=== PATIENT | male | born 1940 | race Caucasian/White ===

== ENCOUNTER 2017-03-15 21:50 | Emergency (ER) | payer OTHER ==
--- NOTE | 2017-03-15 22:18 | EDPHY ---
H & P Smoking Status: Never smoked Time Seen by Provider: 03/15/17 22:09 HPI/ROS: CHIEF COMPLAINT: Right hip pain HISTORY OF PRESENT ILLNESS: This is a 76-year-old male brought into the emergency department by EMS, patient states he bent over to look at the fireplace 1 hour prior to arrival when he felt his right hip pop. 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 Left hip replacement 4 years ago denies any problems. Denies any other injuries REVIEW OF SYSTEMS: Constitutional: No fever, no chills. Eyes: No discharge. No blurred vision ENT: No sore throat. Cardiovascular: No chest pain, no palpitations. Respiratory: No cough, no shortness of breath. Gastrointestinal: No abdominal pain, no vomiting. Genitourinary: No difficulty Musculoskeletal: No back pain. Right hip pain Skin: No rashes. Neurological: No headache. (Belinda Anderson) Physical Exam: General Appearance: Alert, no distress. Eyes: Pupils equal and round no pallor or injection. ENT, Mouth: Mucous membranes moist. Respiratory: There are no retractions, lungs are clear to auscultation. Cardiovascular: Regular rate and rhythm. Gastrointestinal: Abdomen is soft and nontender, no masses, bowel sounds normal. Neurological: No focal deficits Skin: Warm and dry, no rashes. Musculoskeletal: Neck is supple nontender. Extremities: Right hip tenderness, decreased range of motion, no rotation noted positive CMS intact Psychiatric: Patient is oriented X 3, acting appropriate (Belinda Anderson) Constitutional: Initial Vital Signs Temperature (C) 36.5 C 03/15/17 21:58 Heart Rate 82 03/15/17 21:58 Respiratory Rate 16 03/15/17 21:58 Blood Pressure 135/73 H 03/15/17 21:58 O2 Sat (%) 94 03/15/17 21:58 O2 Delivery Mode [Post Nasal Cannula Procedure 3rd] O2 Delivery Mode [Post Non-Rebreather Mask Procedure 2nd] O2 Delivery Mode [Post Non-Rebreather Mask Procedure 1st] O2 Delivery Mode [Procedural Non-Rebreather Mask 1st] O2 Delivery Mode [.Immediate Non-Rebreather Mask Pre-Procedure] O2 Delivery Mode Room Air O2 (L/minute) [Post Procedure 2 3rd] O2 (L/minute) [Post Procedure 15 2nd] O2 (L/minute) [Post Procedure 15 1st] O2 (L/minute) [Procedural 1st] 15 O2 (L/minute) [.Immediate Pre- 15 Procedure] O2 (L/minute) 15 Allergies/Adverse Reactions: Penicillins Allergy (Verified 03/15/17 22:01) Medical Decision Making - Diagnostics Imaging Results: Imaging Impressions Hip X-Ray 03/15/17 22:16 Impression: Right hip dislocation. Procedures: REDUCTION Procedure: Dislocation reduction. Indication: Dislocation The hip was reduced in the usual fashion without complications. Post reduction the patient's neurovascular exam is normal. Post reduction x-ray demonstrates reduction of the joint to the anatomic position. The procedure was performed by myself and my physician pier master assistant. PROCEDURAL SEDATION Procedure: Procedural sedation. Indication: Dislocation reduction I was asked by the physician pier master assistant perform procedural sedation. The patient is an appropriate candidate to tolerate procedural sedation. The patient's vital signs and mental status are appropriate. The risks, benefits and alternatives of the sedation were discussed with the patient. The patient is ASA classification 2. The patient's Mallampati airway score was 1 and the patient did meet the 3-3-2 airway measurements. A time out was completed. The patient was sedated with propofol 100 mg. The patient was monitored with continuous pulse oximetry, quality assurance monitor and end tidal CO2. There were no complications and no significant hypoxemia. I performed the sedation The total time I spent at the bedside during the procedural sedation was 10 minutes. The patient was examined after the procedural sedation and has returned to their pre-sedation baseline with normal vital signs and a normal examination. (Alyssa Richardson) ED Course/Re-evaluation: Discussed ED plan of care: X-ray right hip 2345: Reduction of her right hip, IV 100 mg propofol, 100 mcg fentanyl, 4mg Zofran 2350: Post reduction x-ray ordered 0030: Post reduction films show successful hip reduction positive CMS intact patient ambulatory with steady gait. 0045: Discharge home---> stable, discussed discharge instructions with patient (Belinda Anderson) Differential Diagnosis: Other differential diagnosis considered but not limited to greater trochanter fracture, proximal femur fracture and dislocation (Belinda Anderson) Other Provider: PHYSICIAN DOCUMENTATION: The patient was evaluated and managed by the Physician Vacuum Worker. My co- signature indicates that I have reviewed this chart and I agree with the findings and plan of care as documented. I am the secondary supervising physician. (Alyssa Richardson) - Data Points Medications Given: Discontinued Medications Fentanyl (Sublimaze) 100 mcg IVP EDNOW ONE Stop: 03/16/17 00:03 Last Admin: 03/16/17 00:05 Dose: 100 mcg Ondansetron HCl (Zofran) 4 mg IVP EDNOW ONE Stop: 03/16/17 00:03 Last Admin: 03/16/17 00:06 Dose: 4 mg Propofol (Diprivan) 100 mg IVP EDNOW ONE Stop: 03/16/17 00:03 Last Admin: 03/16/17 00:06 Dose: 100 mg Departure - Departure Disposition: Home, Routine, Self-Care Clinical Impression: Hip dislocation, right Qualifiers: Encounter type: initial encounter Qualified Code(s): S73.004A - Unspecified dislocation of right hip, initial encounter Condition: Good Instructions: Hip Dislocation (ED) Additional Instructions: 1. Restricted range of motion, your risk for further hip dislocation 2. Follow up with Orthopedics within the next week. Follow up with primary care provider Referrals: Patient,NotPresent [Unknown] - As per Instructions Dayo Osorio MD [Medical Doctor] - As per Instructions
[2017-03-15] MEDS ORDERED: ONDANSETRON 4 MG/2 ML VIAL ONE (23:34)
[2017-03-16] MEDS ORDERED: PROPOFOL 200 MG/20 ML VIAL IVP ONE (00:02)
[2017-03-16] MEDS ORDERED: ONDANSETRON 4 MG/2 ML VIAL IVP ONE (00:02)
[2017-03-16] MEDS ORDERED: fentaNYL 100 MCG/2 ML INJ IVP ONE (00:02)
[2017-03-16 00:51] VITALS: BP 132/62; PULSE 73; RESP 16; TEMP 97.5; O2SAT 94
== END 2017-03-16 00:49 | disposition home or self-care (01) ==
LOC: EDUNIT#
PROC: 0SS9XZZ Reposition Right Hip Joint, External Approach (ICD-10-PCS; principal; 2017-03-15)
DX: T84.020A Dislocation of internal right hip prosthesis, initial encounter (principal); Y79.2 Prosthetic and other implants, materials and accessory orthopedic devices associated with adverse incidents
CPT/HCPCS: 27265; 73502; 96374; 96375; 99152; 99285; J2405

== ENCOUNTER 2018-12-27 08:33 | Emergency (ER) | payer OTHER ==
--- NOTE | 2018-12-27 08:40 | EDPHY ---
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 The patient reportedly dislocated the hip while bending over to clip his toenails earlier today. He has had a arthroplasty for over 20 years. He believes he has dislocated approximately 8 times. He reports the ER reductions have typically been successful about 50% of the time and he has had received general anesthesia in the past. The patient denies any acute numbness or weakness. He denies any additional acute complaints. He is not anticoagulated. He has not eaten today. The patient was brought in by paramedics. He declined IV pain medications in route. REVIEW OF SYSTEMS: A comprehensive 10 point review of systems is otherwise negative aside from elements mentioned in the history of present illness. Source: Patient Exam Limitations: No limitations - Medical/Surgical History Hx Asthma: No Hx Chronic Respiratory Disease: No Hx Diabetes: No Hx Cardiac Disease: Yes Hx Renal Disease: No Hx Cirrhosis: No Hx Alcoholism: No Hx HIV/AIDS: No Hx Splenectomy or Spleen Trauma: No Other PMH: high cholesterol, r hip replacement 20 years ago, cardiac hx, left hip replacement 4 years ago - Social History Smoking Status: Never smoked - Physical Exam Exam: General Appearance: Alert, no distress Eyes: Pupils equal and round no pallor or injection ENT, Mouth: Mucous membranes moist Respiratory: There are no retractions, lungs are clear to auscultation Cardiovascular: Regular rate and rhythm Gastrointestinal: Abdomen is soft and nontender, no masses, bowel sounds normal Neurological: 5/5 strength noted all 4 extremities, normal motor sensory exam noted in the bilateral lower extremities Skin: Warm and dry, no rashes Musculoskeletal: Neck is supple nontender Extremities: Right leg is shortened, flexed and internally rotated Constitutional: Initial Vital Signs Temperature (C) 36.8 C 12/27/18 08:37 Heart Rate 72 12/27/18 08:37 Respiratory Rate 16 12/27/18 08:37 Blood Pressure 177/92 H 12/27/18 08:37 O2 Sat (%) 98 12/27/18 08:37 O2 Delivery Mode [Post Room Air Procedure 1st] O2 Delivery Mode [Procedural Non-Rebreather Mask 1st] O2 Delivery Mode [.Immediate Non-Rebreather Mask Pre-Procedure] O2 Delivery Mode Room Air O2 (L/minute) [Procedural 1st] 15 O2 (L/minute) [.Immediate Pre- 15 Procedure] O2 (L/minute) 15 Allergies/Adverse Reactions: Penicillins Allergy (Verified 03/15/17 22:01) Sulfa (Sulfonamide Antibiotics) Allergy (Verified 12/27/18 08:36) Home Medications: Medication Instructions Recorded Hydrocodone/APAP 5/325 [[place] 1 - 2 each PO Q6 PRN #20 tab 12/27/18 5/325] Nitroglycerin 12/27/18 Medical Decision Making - Diagnostics Imaging Results: Imaging Impressions Hip X-Ray 12/27/18 08:35 Impression: Dislocated right hip arthroplasty. Hip X-Ray 12/27/18 09:07 Impression: Relocation of dislocated right hip prosthesis. Procedures: Procedure: Conscious sedation. Indication: Right prosthetic hip dislocation The patient is an appropriate candidate to tolerate procedural sedation. The patient's vital signs and mental status are appropriate. The risks, benefits and alternatives of the sedation were discussed with the patient. The patient is ASA classification 2. The patient's Mallampati airway score was 2 and the patient did meet the 3-3-2 airway measurements. A time out was completed. The patient was sedated with 80 mg of propofol. The patient was monitored with continuous pulse oximetry, monitoring coordinator and end tidal CO2. There were no complications and no significant hypoxemia. I performed both the sedation and the procedure. The total time I spent at the bedside during the procedural sedation was 18 minutes. The patient was examined after the procedural sedation and has returned to their pre-sedation baseline with normal vital signs and a normal examination. Procedure: Dislocation reduction. Indication: Prosthetic hip dislocation The right prosthetic hip was reduced in the usual fashion without complications using the "Captain Dann" technique. Post reduction the patient's neurovascular exam is normal. Post reduction x-ray demonstrates reduction of the joint to the anatomic position. The procedure was performed by myself. ED Course/Re-evaluation: ED course: The patient presents the emergency department with an obvious dislocation of his right hip which is confirmed radiographically. The patient is neurologically intact upon arrival. The patient was verbally consented for conscious sedation. He received IV propofol and I reduced his hip dislocation without complication. Post reduction x-ray confirms a hip reduction. The patient will be discharged home in stable condition. He will follow up with his regular physicians at [facility] as needed. The patient has been told in the past that he would be benefit from considering revision arthroplasty which the patient is not interested in pursuing currently. The patient is discharged home with customary aftercare instructions and return precautions. Differential Diagnosis: Differential diagnosis considered includes hip fracture, hip dislocation, pelvic fracture, neurovascular injury Departure - Departure Disposition: Home, Routine, Self-Care Clinical Impression: Dislocation of hip joint prosthesis Qualifiers: Encounter type: initial encounter Qualified Code(s): T84.029A - Dislocation of unspecified internal joint prosthesis, initial encounter; Z96.649 - Presence of unspecified artificial hip joint; Z96.649 - Presence of unspecified artificial hip joint Condition: Good Instructions: Hip Dislocation (ED) Additional Instructions: 1. Follow up with your [facility] orthopedic physician as needed. 2. Take Ibuprofen or Motrin 600 mg by mouth three times a day. 3. [place] as needed for severe pain
[2018-12-27] MEDS ORDERED: PROPOFOL 200 MG/20 ML VIAL ONE (08:58)
[2018-12-27 09:54] VITALS: BP 160/90
== END 2018-12-27 10:35 | disposition home or self-care (01) ==
LOC: EDUNIT#
PROC: 0SS9XZZ Reposition Right Hip Joint, External Approach (ICD-10-PCS; principal; 2018-12-27)
DX: T84.020A Dislocation of internal right hip prosthesis, initial encounter (principal); Z96.649 Presence of unspecified artificial hip joint; X50.0XXA Overexertion from strenuous movement or load, initial encounter; Y93.E1 Activity, personal bathing and showering
CPT/HCPCS: 27250; 73502; 99152; 99153; 99285; J2704